=== PATIENT | female | born 1975 | race Caucasian/White ===

== ENCOUNTER → 2019-12-28 | Outpatient (CLI) | payer BC | LOC: MAMMO 08:02 | PROVIDERS: ATTEND Obstetrics & Gynecology | DX: Z12.31 Encounter for screening mammogram for malignant neoplasm of breast (principal) | CPT/HCPCS: 77067 ==

== ENCOUNTER → 2020-01-25 | Outpatient (CLI) | payer BC ==
--- NOTE | 2020-01-26 08:42 | Diagnostic Imaging Report ---
#[id number] - USBRELIMLT ULTRASOUND OF THE LEFT BREAST : 01/25/2020 Comparison is made to exams dated: 01/25/2020 mammogram and 12/28/2019 mammogram - [facility]. Color flow and real-time ultrasound were performed on the left breast. Matthews scale images of the real-time examination were reviewed. There is a benign 9 mm simple cyst in the left breast at 10 o'clock middle depth. IMPRESSION: BENIGN There is no sonographic evidence of malignancy. The 9 mm simple cyst in the left breast is benign. A 1 year screening mammogram is recommended. JONAH bradshaw/keila:01/25/2020 16:55:27 Bell Person: Neelima Evans [facility], [facility] letter sent: Normal Exam Ultrasound BI-RADS: 2 Benign
--- NOTE | 2020-01-26 08:42 | Diagnostic Imaging Report ---
#[id number] - MGDXLT #UNILATERAL LEFT DIGITAL DIAGNOSTIC MAMMOGRAM WITH SPOT COMPRESSION: 01/25/2020 Comparison is made to exam dated: 12/28/2019 mammogram - [facility]. There are scattered fibroglandular elements in the left breast. There is an 8 mm oval equal density mass with a circumscribed margin in the left breast at 8 o'clock middle depth. No other significant masses or calcifications are seen in the breast. IMPRESSION: INCOMPLETE: NEEDS ADDITIONAL IMAGING EVALUATION The 8 mm oval equal density mass in the left breast is indeterminate. An ultrasound is recommended and will be performed during the same visit. Follow-up with ACR/ACS guidelines. JONAH MCMILLAN M.D. kw/:01/25/2020 16:54:05 Ergonomics Technician: Erendira LAW)(M), [facility] Mammogram BI-RADS: 0 Indeterminate
== END ==
LOC: MAMMO 07:53
PROVIDERS: ATTEND Obstetrics & Gynecology
DX: N63.20 Unspecified lump in the left breast, unspecified quadrant (principal)